=== PATIENT | female | born 2000 | race Two or more races ===

== ENCOUNTER 2020-05-05 13:54 | Outpatient (CLI) | payer BC, MEDICAID ==
[~2020-05-05] VITALS: Ht 160 cm; Wt 89.5 kg
[2020-05-05 14:06] VITALS: BP 116/67
== END 2020-05-05 14:40 | disposition home or self-care (01) ==
LOC: LDOP 13:54
PROVIDERS: ATTEND Obstetrics & Gynecology
DX: O29.43 Spinal and epidural anesthesia induced headache during pregnancy, third trimester (principal); O26.893 Other specified pregnancy related conditions, third trimester; R51 Headache; R11.0 Nausea; Z3A.32 32 weeks gestation of pregnancy
CPT/HCPCS: 59025

== ENCOUNTER 2020-05-08 17:47 | Outpatient (CLI) | payer BC ==
[~2020-05-08] VITALS: Ht 162.6 cm; Wt 89.0 kg
== END 2020-05-08 19:58 | disposition home or self-care (01) ==
LOC: LDOP 17:47
PROVIDERS: ATTEND Obstetrics & Gynecology
DX: R11.0 Nausea (principal)
CPT/HCPCS: 59025; 84112

== ENCOUNTER 2020-05-25 19:21 | Outpatient (CLI) | payer BC ==
[2020-05-25 20:20] VITALS: BP 116/60
[2020-05-25 20:33] LABS: MICROSCOPIC AUTO
[2020-05-25] MEDS ORDERED: NITR100C56 PO ×2 (21:41→21:44)
[2020-05-25] MEDS ORDERED: NITROFURANTOIN (MACROBID) 100 MG CAPSULE ONE (21:46)
[2020-05-25] MEDS ORDERED: NITROFURANTOIN (MACROBID) 100 MG CAPSULE PO ONE (22:47)
== END 2020-05-25 21:55 | disposition home or self-care (01) ==
LOC: LDOP 19:21
PROVIDERS: ATTEND Obstetrics & Gynecology
DX: O26.893 Other specified pregnancy related conditions, third trimester (principal); O23.13 Infections of bladder in pregnancy, third trimester; O62.8 Other abnormalities of forces of labor; R10.2 Pelvic and perineal pain; Z3A.35 35 weeks gestation of pregnancy
CPT/HCPCS: 59025; 81001; 87086

== ENCOUNTER → 2020-06-15 | Outpatient (CLI) | payer BC ==
[~2020-06-15] MED LIST: NITR100C56 PO
== END | disposition home or self-care (01) ==
LOC: STAR 15:38
PROVIDERS: ATTEND Obstetrics & Gynecology
DX: Z01.812 Encounter for preprocedural laboratory examination (principal); Z20.828 Contact with and (suspected) exposure to other viral communicable diseases
CPT/HCPCS: 36415; 87635

== ENCOUNTER 2020-06-20 07:59 | Inpatient (IN) | payer BC ==
[~2020-06-20] VITALS: Ht 160 cm; Wt 93.1 kg
[2020-06-20 08:28] LABS: BASOPHILS # (AUTO) 0.02 x10^3/uL (0-0.3); BASOPHILS % (AUTO) 0 % (0-1); EOSINOPHILS # (AUTO) 0.02 x10^3/uL (0-0.8); EOSINOPHILS % (AUTO) 0 % (1-7); LYMPHOCYTES # (AUTO) 2.22 x10^3/uL (1-6.1); LYMPHOCYTES % (AUTO) 36 % (22-44); MD NO; MEAN CORPUSCULAR HEMOGLOBIN 29.5 pg (27.0-34.8); MEAN CORPUSCULAR VOLUME 89.2 fL (80-100); MEAN PLATELET VOLUME 8.7 fL (7.4-10.4); MONOCYTES # (AUTO) 0.37 x10^3/uL (0-1.4); MONOCYTES % (AUTO) 6 % (2-9); NEUTROPHILS # (AUTO) 3.61 x10^3/uL (1.8-8.0); NEUTROPHILS % (AUTO) 58 % (42-75); PLATELET COUNT 231 x10^3/uL (130-400); RED CELL DISTRIBUTION WIDTH 13.4 % (9.6-15.2)
[2020-06-20] MEDS ORDERED: OXYTOCIN 30U/ 0.9% NaCL 500ML 500 ML ONE (08:29)
[2020-06-20] MEDS ORDERED: NEWBORN KIT ONE (08:29)
[2020-06-20] MEDS ORDERED: METOCLOPRAMIDE 5 MG/ML, 2ML ONE (08:29)
[2020-06-20] MEDS ORDERED: LACTATED RINGERS 1,000 ML IVBOLUS ONE (08:30)
[2020-06-20] MEDS ORDERED: METOCLOPRAMIDE 5 MG/ML, 2ML IV ONE (08:30)
[2020-06-20] MEDS ORDERED: SODIUM CITRATE/CITRIC ACID 30 ML UDC PO ONE (08:30)
[2020-06-20 08:41] VITALS: BP 117/79
[2020-06-20] MEDS ORDERED: morphine SULFATE/PF 0.5 MG/ML, 10ML ONE (08:59)
[2020-06-20] MEDS ORDERED: EPINEPHRINE 1 MG/ML, 1ML ONE ×2 (09:02)
[2020-06-20] MEDS: LACTATED RINGERS 1,000 ML IV SCH ×2 (09:32→11:33)
[2020-06-20] MEDS ORDERED: EPHEDRINE 50 MG/ML, 1ML ONE (10:47)
[2020-06-20] MEDS ORDERED: ONDANSETRON 2MG/ML, 2ML ONE (10:47)
[2020-06-20] MEDS ORDERED: OXYTOCIN 10 UNITS/ML, 1ML ONE (10:47)
[2020-06-20] MEDS ORDERED: CEFAZOLIN 1,000 MG ONE (10:47)
[2020-06-20] MEDS ORDERED: PHENYLEPHRINE 10 MG/ML ONE (10:47)
[2020-06-20] MEDS ORDERED: WATER-INJECTION,STERILE 10 ML IV ONE (10:47)
[2020-06-20] MEDS: OXYTOCIN 30U/ 0.9% NaCL 500ML 500 ML IV SCH ×2 (11:29→21:26)
[2020-06-20] MEDS ORDERED: ONDANSETRON 2MG/ML, 2ML IV PRN (11:30)
[2020-06-20] MEDS ORDERED: IBUPROFEN 600 MG TABLET PO PRN ×2 (11:30→11:50)
[2020-06-20] MEDS ORDERED: OXYcodone/APAP 5/325MG TABLET PO PRN (11:30)
[2020-06-20] MEDS ORDERED: SIMETHICONE 80 MG CHEW TAB PO PRN (11:30)
[2020-06-20] MEDS ORDERED: OXYcodone IR 5MG TABLET PO PRN (11:30)
[2020-06-20] MEDS ORDERED: MISOPROSTOL 200 MCG TABLET PR PRN (11:30)
[2020-06-20] MEDS ORDERED: ACETAMINOPHEN 325 MG TABLET PO PRN (11:30)
[2020-06-20] MEDS ORDERED: OXYcodone 5 MG/5 ML ORAL.SOL UDC ONE (12:10)
[2020-06-20] MEDS ORDERED: KETOROLAC 30 MG/1 ML ONE (12:10)
[2020-06-20] MEDS: KETOROLAC 30 MG/1 ML IV SCH ×2 (12:12→18:18)
[2020-06-20] MEDS ORDERED: OXYcodone 5 MG/5 ML ORAL.SOL UDC PO PRN (12:30)
[2020-06-20 12:50] VITALS: BP 112/75
[2020-06-20 15:59] VITALS: BP 115/75
[2020-06-20] MEDS: DOCUSATE 100 MG CAPSULE PO PRN (18:18)
[2020-06-20 18:47] LABS: BASOPHILS # (AUTO) 0.02 x10^3/uL (0-0.3); BASOPHILS % (AUTO) 0 % (0-1); EOSINOPHILS % (AUTO) 0 % (1-7); LYMPHOCYTES # (AUTO) 1.56 x10^3/uL (1-6.1); LYMPHOCYTES % (AUTO) 17 % (22-44); MEAN CORPUSCULAR HEMOGLOBIN 29.5 pg (27.0-34.8); MEAN CORPUSCULAR HGB CONC 32.6 g/dL (32.4-35.8); MEAN CORPUSCULAR VOLUME 90.7 fL (80-100); MEAN PLATELET VOLUME 8.8 fL (7.4-10.4); MONOCYTES # (AUTO) 0.47 x10^3/uL (0-1.4); MONOCYTES % (AUTO) 5 % (2-9); NEUTROPHILS # (AUTO) 6.88 x10^3/uL (1.8-8.0); NEUTROPHILS % (AUTO) 77 % (42-75); PLATELET COUNT 199 x10^3/uL (130-400); RED BLOOD COUNT 3.41 x10^6/uL (3.82-5.3); RED CELL DISTRIBUTION WIDTH 13.3 % (9.6-15.2)
[2020-06-20 18:48] LABS: MD NO
[2020-06-20 20:00] VITALS: BP 117/85
[2020-06-20] MEDS ORDERED: RHOGAM FROM BLOOD BANK 1 NOTE EA IM/IV ONE (22:00)
[2020-06-21] VITALS: BP 104/67
[2020-06-21] MEDS: DOCUSATE 100 MG CAPSULE PO PRN ×2 (00:02→09:29)
[2020-06-21] MEDS: KETOROLAC 30 MG/1 ML IV SCH ×4 (00:02→17:53)
[2020-06-21 04:10] VITALS: BP 112/74
[2020-06-21] MEDS: OXYTOCIN 30U/ 0.9% NaCL 500ML 500 ML IV SCH ×2 (07:26→17:26)
[2020-06-21 08:10] VITALS: BP 106/71
[2020-06-21] MEDS: PRENATAL VIT/IRON/FA 1 EACH TABLET PO SCH (09:29)
[2020-06-21 12:00] VITALS: BP 122/80
[2020-06-21 20:00] VITALS: BP 111/75
[2020-06-22] MEDS: KETOROLAC 30 MG/1 ML IV SCH ×2 (00:53→06:27)
[2020-06-22] MEDS: OXYTOCIN 30U/ 0.9% NaCL 500ML 500 ML IV SCH (03:26)
[2020-06-22 08:36] VITALS: BP 106/73
[2020-06-22] MEDS: PRENATAL VIT/IRON/FA 1 EACH TABLET PO SCH (09:43)
[2020-06-22] MEDS: DOCUSATE 100 MG CAPSULE PO PRN (09:43)
[2020-06-22] MEDS ORDERED: IBUP-1222 PO (11:45)
[2020-06-22] MEDS ORDERED: OXYC-302 PO (11:45)
== END 2020-06-22 13:25 | disposition home or self-care (01) | DRG 788 ==
LOC: LDIP 08:03 → 2NW 12:43
PROVIDERS: ADMIT Obstetrics & Gynecology; ATTEND Obstetrics & Gynecology
PROC: 10D00Z1 Extraction of Products of Conception, Low, Open Approach (ICD-10-PCS; principal; 2020-06-20)
PROC: 3E0234Z Introduction of Serum, Toxoid and Vaccine into Muscle, Percutaneous Approach (ICD-10-PCS; 2020-06-20)
DX: O32.1XX0 Maternal care for breech presentation, not applicable or unspecified (principal); O26.893 Other specified pregnancy related conditions, third trimester; O69.81X0 Labor and delivery complicated by cord around neck, without compression, not applicable or unspecified; Z3A.39 39 weeks gestation of pregnancy; Z37.0 Single live birth; Z67.41 Type O blood, Rh negative
CPT/HCPCS: 36415; 85025; 85461; 86592; 86850; 86900; G0378; J0171; J0690; J1885; J2274; J2405; J2790; J2370; J2590; J2765; J7120